=== PATIENT | female | born 1975 ===

== ENCOUNTER 2017-01-06 16:47 | Emergency (ER) | payer OTHER ==
[2017-01-06 16:47] VITALS: BMI 29.9
[2017-01-06 17:03] VITALS: BP 154/103; PULSE 91; RESP 16; TEMP 99.1; O2SAT 100
[2017-01-06 17:58] LABS: BASO % 0.3 % (0.0-2.0); EOS % 0.7 % (0.0-4.0); HEMATOCRIT 36.7 % (34.0-47.0); LYMPH # 2.1 K/uL (1.0-4.3); MEAN CELL VOLUME 78.6 fl (81.0-99.0); MEAN CORPUSCULAR HEMOGLOBIN 25.9 pg (27.0-31.0); MEAN CORPUSCULAR HGB CONC 32.9 g/dL (33.0-37.0); MEAN PLATELET VOLUME 9.1 fl (7.2-11.7); MONO # 0.8 K/uL (0.0-0.8); MONO % 11.1 % (0.0-10.0); NEUT # 3.9 K/uL (1.8-7.0); NEUT % 56.9 % (50.0-75.0); RED CELL DISTRIBUTION WIDTH 14.6 % (11.5-14.5); WHITE BLOOD COUNT 6.8 K/uL (4.8-10.8)
[2017-01-06 18:08] LABS: PARTIAL THROMBOPLASTIN TIME 29.4 Seconds (25.6-37.1)
[2017-01-06 18:11] LABS: ALB/GLOB RATIO 1.4 (1.0-2.1); ALKALINE PHOSPHATASE 67 U/L (38-126); ALT/SGPT 27 U/L (9-52); AST/SGOT 18 U/L (14-36); BILIRUBIN,TOTAL 0.1 mg/dl (0.2-1.3); BLOOD UREA NITROGEN 11 mg/dl (7-17); CALCIUM 9.1 mg/dL (8.4-10.2); CARBON DIOXIDE 25 mmol/L (22-30); CHLORIDE 107 mmol/L (98-107); GFR AFRICAN-AMERICAN > 60; GLUCOSE,RANDOM 94 mg/dL (65-105); POTASSIUM 3.6 MMOL/L (3.6-5.0); SODIUM 141 mmol/l (132-148); TOTAL PROTEIN 7.2 G/DL (6.3-8.2)
[2017-01-06 18:14] LABS: URINE BILIRUBIN NEGATIVE (NEGATIVE); URINE COLOR YELLOW (YELLOW); URINE GLUCOSE (UA) NEG (Normal); URINE KETONE NEGATIVE (NEGATIVE); URINE LEUKOCYTE ESTERASE NEG Leu/uL (Negative); URINE PROTEIN NEGATIVE (NEGATIVE); URINE UROBILINOGEN 0.2-1.0 mg/dL (0.2-1.0); WBC URINE 2 /hpf (0-5)
--- NOTE | 2017-01-06 18:30 | ED PDOC ---
HPI: Abdomen Time Seen by Provider: 01/06/17 17:01 Chief Complaint (Nursing): Abdominal Pain Chief Complaint (Provider): Abdominal Pain History Per: Patient History/Exam Limitations: no limitations Onset/Duration Of Symptoms: Days (x5) Current Symptoms Are (Timing): Still Present Additional Complaint(s): Natty Young is a 41 year old female, 5 weeks , who presents to the emergency department with a complaint of lower abdominal pain associated with heavy vaginal bleeding ongoing for 5 days. Patient was recently seen for similar symptoms at [facility] on 01/05/17. PMD: none provided Past Medical History Reviewed: Historical Data, Nursing Documentation, Vital Signs Vital Signs: Last Vital Signs Temp 99.1 F 01/06/17 17:00 Pulse 91 H 01/06/17 17:00 Resp 16 01/06/17 17:00 BP 154/103 H 01/06/17 17:00 Pulse Ox 100 01/06/17 19:02 - Medical History PMH: No Chronic Diseases - Surgical History Surgical History: No Surg Hx - Family History Family History: States: Unknown Family Hx - Social History Current smoker - smoking cessation education provided: No Alcohol: None Drugs: Denies - Immunization History Hx Tetanus Toxoid Vaccination: No Hx Influenza Vaccination: No Hx Pneumococcal Vaccination: No - Home Medications Home Medications: Ambulatory Orders Medication Instructions Recorded Misoprostol 4 tab VAG Q12 #8 tablet 01/06/17 - Allergies Allergies/Adverse Reactions: Allergies Allergy/AdvReac Type Severity Reaction Status Date / Time No Known Allergies Allergy Verified 01/05/17 09:08 Review of Systems ROS Statement: Except As Marked, All Systems Reviewed And Found Negative Gastrointestinal: Positive for: Abdominal Pain (lower) Genitourinary Female: Positive for: Vaginal Bleeding (heavy) Musculoskeletal: Positive for: Back Pain Physical Exam - Reviewed Nursing Documentation Reviewed: Yes Vital Signs Reviewed: Yes - Physical Exam Appears: Positive for: Well, Non-toxic, No Acute Distress Head Exam: Positive for: ATRAUMATIC, NORMAL INSPECTION, NORMOCEPHALIC Skin: Positive for: Normal Color Eye Exam: Positive for: Normal appearance ENT: Positive for: Normal ENT Inspection Neck: Positive for: Normal Cardiovascular/Chest: Positive for: Regular Rate, Rhythm, Chest Non Tender Respiratory: Positive for: Normal Breath Sounds, Accessory Muscle Use. Negative for: Decreased Breath Sounds, Respiratory Distress Gastrointestinal/Abdominal: Positive for: Tenderness (suprapubic mildly). Negative for: Normal Exam Back: Positive for: Normal Inspection. Negative for: L CVA Tenderness, R CVA Tenderness Extremity: Positive for: Normal ROM. Negative for: Tenderness, Pedal Edema, Deformity Neurologic/Psych: Positive for: Alert, Oriented - Laboratory Results Result Diagrams: 01/06/17 17:50 01/06/17 17:50 - ECG O2 Sat by Pulse Oximetry: 100 (RA) Pulse Ox Interpretation: Normal - Physician Consult Information Time Consulting Physican Contacted: 20:19 Physician Contacted: Shivam Santos Outcome Of Conversation: Recommends Misoprostol 800 mg per vagina q12 X 2 doses, repeat urine test in one week. Medical Decision Making Medical Decision Making: Initial Impression: Abdominal Pain Initial Plan: * Beta-HCG * CMP * CBC * PTT * PT * Urinalysis * US OB preg * US transvag --US OB pregnanct (01/05/17) Findings: The uterus measures approximately 10.7 x 7.2 x 8.0 cm. Anteverted. Cervix length measures approximately 3.7 cm. There is evidence of an intrauterine gestational sac which measures 1.2 cm and is compatible with a gestational age of 5 weeks 2 days. No evidence of yolk sac or pole at this time. The right ovary measures 2.1 x 1.9 x 2.5 cm . The left ovary measures 3.1 x 1.8 x 2.8 cm. Blood flow was demonstrated to both ovaries. Impression: Intrauterine gestational sac consistent with gestational age calculation of 5 weeks 2 days. No evidence of yolk sac or pole. Recommend clinical correlation including quantitative beta HCG. Time: 1843 --US transvag FINDINGS: UTERUS: Gestational sac: Single intrauterine gestational sac. Yolk sac is visualized however pole is not identified on the current examination. age (Ultrasound estimated): 5 weeks and 0 days. Myranda-gestational hemorrhage: None. Date of delivery (Ultrasound estimated) : 09/08/2017 Uterus measures 8.7 x 5.0 x 6.8 cm. Normal in size and appearance. CERVIX: Long and closed. No cervical abnormality seen. RIGHT OVARY: Measures 2.6 x 2.6 x 1.4 cm. No mass lesion. Normal flow. LEFT OVARY: Measures 2.7 x 2.1 x 2.4 cm. No solid mass. Normal flow. FREE FLUID: None. OTHER FINDINGS: None. IMPRESSION: Single intrauterine gestational sac with mean gestational age of 5 weeks and 0 days. Yolk sac is visualized. pole is not identified on the current examination. Clinical and imaging follow-up is recommended to confirm viability. The expected date of delivery by ultrasound is 09/08/2017. Scribe Attestation: Documented by Barbara Espinal, acting as a scribe for Tejal Barnett MD. Provider Scribe Attestation: All medical record entries made by the Scribe were at my direction and personally dictated by me. I have reviewed the chart and agree that the record accurately reflects my personal performance of the history, physical exam, medical decision making, and the department course for this patient. I have also personally directed, reviewed, and agree with the discharge instructions and disposition. Disposition - Clinical Impression Clinical Impression: Inevitable - Patient ED Disposition Is Patient to be Admitted: No - Disposition [facility] Disposition: Routine/Home Disposition Time: 20:21 Condition: STABLE Additional Instructions: SEGUIMIENTO CON OB CLINIC EN RASHAD SEMANA PARA REPETIR LA PRUEBA DE EMBARAZO DE ORINA. Prescriptions: Misoprostol 4 tab VAG Q12 #8 tablet Instructions: Spontaneous Miscarriage (ED) Forms: [employer] (Bahraini) Print Language: HAITIAN
[2017-01-06 18:41] LABS: RBC URINE 15 /hpf (0-3); URINE BLOOD MODERATE (NEGATIVE)
--- NOTE | 2017-01-06 18:44 | US ---
PROCEDURE: OB Pelvic Ultrasound HISTORY: Vaginal bleeding COMPARISON: None available. FINDINGS: UTERUS: Gestational sac: Single intrauterine gestational sac. Yolk sac is visualized however pole is not identified on the current examination. age (Ultrasound estimated): 5 weeks and 0 days. Myranda-gestational hemorrhage: None. Date of delivery (Ultrasound estimated) : 09/08/2017 Uterus measures 8.7 x 5.0 x 6.8 cm. Normal in size and appearance. CERVIX: Long and closed. No cervical abnormality seen. RIGHT OVARY: Measures 2.6 x 2.6 x 1.4 cm. No mass lesion. Normal flow. LEFT OVARY: Measures 2.7 x 2.1 x 2.4 cm. No solid mass. Normal flow. FREE FLUID: None. OTHER FINDINGS: None. IMPRESSION: Single intrauterine gestational sac with mean gestational age of 5 weeks and 0 days. Yolk sac is visualized. pole is not identified on the current examination. Clinical and imaging follow-up is recommended to confirm viability. The expected date of delivery by ultrasound is 09/08/2017.
== END 2017-01-06 20:47 | disposition home or self-care (01) ==
LOC: H.ER 16:47
DX: O03.9 Complete or unspecified spontaneous abortion without complication (principal); Z3A.01 Less than 8 weeks gestation of pregnancy

== ENCOUNTER 2017-07-02 07:17 | Emergency (ER) | payer OTHER ==
[2017-07-02 07:32] VITALS: BMI 29.9
[2017-07-02 07:34] VITALS: BP 130/73; PULSE 80; RESP 20; TEMP 99; O2SAT 100
[2017-07-02 08:28] LABS: BASO % 1.1 % (0.0-2.0); EOS % 0.7 % (0.0-4.0); HEMOGLOBIN 10.4 g/dL (12.0-16.0); LYMPH # 1.3 K/uL (1.0-4.3); LYMPH % 30.3 % (20.0-40.0); MEAN CORPUSCULAR HEMOGLOBIN 23.5 pg (27.0-31.0); MEAN CORPUSCULAR HGB CONC 31.6 g/dL (33.0-37.0); MEAN PLATELET VOLUME 8.7 fl (7.2-11.7); MONO # 0.6 K/uL (0.0-0.8); MONO % 13.3 % (0.0-10.0); NEUT # 2.4 K/uL (1.8-7.0); NEUT % 54.6 % (50.0-75.0); NRBC % 0.1 % (0.0-0.0); RBC 4.44 Mil/uL (3.80-5.20); RED CELL DISTRIBUTION WIDTH 15.9 % (11.5-14.5); WHITE BLOOD COUNT 4.4 K/uL (4.8-10.8)
[2017-07-02 08:29] LABS: MEAN CELL VOLUME 74.4 fl (81.0-99.0)
--- NOTE | 2017-07-02 08:56 | CT ---
PROCEDURE: CT HEAD WITHOUT CONTRAST. HISTORY: L arm weakness x2 mos COMPARISON: None available. TECHNIQUE: Axial computed tomography images were obtained through the head/brain without intravenous contrast. Radiation dose: Total exam DLP = 744 mGy-cm. This CT exam was performed using one or more of the following dose reduction techniques: Automated exposure control, adjustment of the mA and/or kV according to patient size, and/or use of iterative reconstruction technique. FINDINGS: HEMORRHAGE: No intracranial hemorrhage. BRAIN: No mass effect or edema. No atrophy or chronic microvascular ischemic changes. VENTRICLES: Unremarkable. No hydrocephalus. CALVARIUM: Unremarkable. PARANASAL SINUSES: Unremarkable as visualized. No significant inflammatory changes. MASTOID AIR CELLS: Unremarkable as visualized. No inflammatory changes. OTHER FINDINGS: None. IMPRESSION: No acute intracranial pathology.
--- NOTE | 2017-07-02 08:58 | CT ---
PROCEDURE: CT Cervical Spine without contrast HISTORY: L arm weakness x2 mos COMPARISON: None available. TECHNIQUE: Axial computed tomography images were obtained of the cervical spine without the use of intravenous contrast. Coronal and sagittal reformatted images were created and reviewed. Radiation dose: Total exam DLP = 465.4 mGy-cm. This CT exam was performed using one or more of the following dose reduction techniques: Automated exposure control, adjustment of the mA and/or kV according to patient size, and/or use of iterative reconstruction technique. FINDINGS: VERTEBRAE: No fracture. Normal alignment. No destructive bony lesion. DISCS/SPINAL CANAL/NEURAL FORAMINA: No significant central canal or neural foraminal stenosis. Discs heights are grossly preserved. PARASPINAL SOFT TISSUES: Unremarkable. OTHER FINDINGS: None. IMPRESSION: No acute fracture.
[2017-07-02 09:13] LABS: ALB/GLOB RATIO 1.2 (1.0-2.1); ALBUMIN 3.9 g/dL (3.5-5.0); ALT/SGPT 37 U/L (9-52); AST/SGOT 23 U/L (14-36); BLOOD UREA NITROGEN 12 mg/dl (7-17); CALCIUM 8.8 mg/dL (8.4-10.2); GFR AFRICAN-AMERICAN > 60; GFR NON-AFRICAN AMERICAN > 60
--- NOTE | 2017-07-02 09:43 | RAD ---
HISTORY: chest pain/ r/o infiltrate COMPARISON: No prior. TECHNIQUE: Chest PA and lateral FINDINGS: LUNGS: No active pulmonary disease. PLEURA: No significant pleural effusion identified. No pneumothorax apparent. CARDIOVASCULAR: Normal. OSSEOUS STRUCTURES: No significant abnormalities. VISUALIZED UPPER ABDOMEN: Normal. OTHER FINDINGS: None. IMPRESSION: No active disease.
--- NOTE | 2017-07-02 09:44 | RAD ---
PROCEDURE: Radiographs of the Left Shoulder HISTORY: L arm pain COMPARISON: No prior. FINDINGS: BONES: No acute fracture. JOINTS: Unremarkable. SOFT TISSUES: Normal. OTHER FINDINGS: None. IMPRESSION: No demonstrated fracture or dislocation.
--- NOTE | 2017-07-02 10:13 | CARD ---
APPROVED REPORT EKG Measurement Heart [id number] CT 134P3 [id number] <Conclusion> Normal sinus rhythm Normal ECG
--- NOTE | 2017-07-02 10:36 | ED PDOC ---
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 Denies falls or trauma. Denies headache, change in vision, speech or LE strength/gait. Minimal neck pain, does not back pain occasionally. Denies fever, cough, SOB, weight loss or syncope. Past Medical History Reviewed: Historical Data, Nursing Documentation, Vital Signs Vital Signs: Last Vital Signs Temp 99 F 07/02/17 07:33 Pulse 80 07/02/17 07:33 Resp 20 07/02/17 07:33 BP 130/73 07/02/17 07:33 Pulse Ox 100 07/02/17 07:33 - Medical History PMH: No Chronic Diseases - Family History Family History: States: Unknown Family Hx - Living Arrangements Living Arrangements: With Family - Social History Current smoker - smoking cessation education provided: No - Immunization History Hx Tetanus Toxoid Vaccination: No Hx Influenza Vaccination: No Hx Pneumococcal Vaccination: No - Home Medications Home Medications: Ambulatory Orders Medication Instructions Recorded Acetaminophen [Tylenol Extra 500 mg PO Q4 PRN 01/12/17 Strength] Ibuprofen 200 mg PO Q6 01/12/17 Ibuprofen [Motrin Tab] 600 mg PO Q6 PRN #15 tab 07/02/17 - Allergies Allergies/Adverse Reactions: Allergies Allergy/AdvReac Type Severity Reaction Status Date / Time No Known Allergies Allergy Verified 06/20/17 11:08 Review of Systems Constitutional: Negative for: Fever, Chills Cardiovascular: Negative for: Chest Pain Respiratory: Negative for: Cough, Shortness of Breath Gastrointestinal: Negative for: Nausea, Vomiting Genitourinary Female: Negative for: Dysuria Musculoskeletal: Positive for: Arm Pain. Negative for: Neck Pain, Back Pain Skin: Negative for: Rash, Lesions, Jaundice Neurological: Negative for: Weakness, Numbness Psych: Negative for: Anxiety Physical Exam - Reviewed Nursing Documentation Reviewed: Yes Vital Signs Reviewed: Yes - Physical Exam Appears: Positive for: Well, Non-toxic, No Acute Distress Head Exam: Positive for: ATRAUMATIC, NORMAL INSPECTION, NORMOCEPHALIC Skin: Positive for: Normal Color, Warm, DRY Eye Exam: Positive for: EOMI, Normal appearance, PERRL ENT: Positive for: Normal ENT Inspection Neck: Positive for: Normal, Painless ROM Cardiovascular/Chest: Positive for: Regular Rate, Rhythm Respiratory: Positive for: CNT, Normal Breath Sounds Gastrointestinal/Abdominal: Positive for: Soft. 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 Negative for: Motor/Sensory Deficits (strength 5/5 all ext), Gait, Aphasia, Facial Droop - Laboratory Results Result Diagrams: 07/02/17 08:22 07/02/17 08:22 - ECG O2 Sat by Pulse Oximetry: 100 Medical Decision Making Medical Decision Making: workup for now chronic L arm numbness initiated CT brain/ CSpine, CXr and L shoulder XR ordered Radiology reports reviewed CT brain and CSpine neg CXR undermarkable labs unremarkable Explained in kyrgyz need for followup w neurology/ possible EMG needed. Followup clinic/ neuro/ PMD next week. Disposition - Clinical Impression Clinical Impression: Arm paresthesia, left - Patient ED Disposition Is Patient to be Admitted: No Counseled Patient/Family Regarding: Studies Performed, Diagnosis, Need For Followup - Disposition Referrals: Turner Jin MD [Medical Doctor] - [facility] [Outside] Disposition: Routine/Home Disposition Time: 10:39 Condition: STABLE Additional Instructions: Followup with neurology next week as directed. You may need further testing such as nerve conduction studies, MRI, or other testing. Prescriptions: Ibuprofen [Motrin Tab] 600 mg PO Q6 PRN #15 tab PRN Reason: Pain, Moderate (4-7) Instructions: Paresthesias (DC) Forms: [employer] (Afghan)
== END 2017-07-02 11:22 | disposition home or self-care (01) ==
LOC: H.ER 07:17
DX: M79.602 Pain in left arm (principal); R20.0 Anesthesia of skin